=== PATIENT | female | born 1955 | race Caucasian/White ===

== ENCOUNTER → 2016-08-04 | Outpatient (CLI) | payer OTHER ==
[~2016-08-04] MED LIST: IOPAMIDOL (ISOVUE 370) 100 ML BTL IV ONE
== END ==
LOC: CIMAGING 09:11
PROVIDERS: ATTEND Internal Medicine
DX: Z12.9 Encounter for screening for malignant neoplasm, site unspecified (principal); C18.9 Malignant neoplasm of colon, unspecified; R59.0 Localized enlarged lymph nodes; J98.11 Atelectasis; K76.89 Other specified diseases of liver
CPT/HCPCS: 71260-PO; 74177-PO; Q9967